=== PATIENT | male | born 1985 | race Caucasian/White ===

== ENCOUNTER 2022-03-18 12:00 | Observation (INO) | payer MEDICARE, MEDICAID ==
[2022-03-18] MEDS ORDERED: Lidocaine 1% (PF) 30 ML VIAL ONE (12:53)
[2022-03-18] MEDS ORDERED: Bacitracin Zinc Ointment 30 gm TUBE ONE (12:53)
[2022-03-18] MEDS ORDERED: EPINEPHrine 1 MG/ML AMP ONE (12:53)
[2022-03-18] MEDS ORDERED: Midazolam HCl 2 mg/2 ml Vial ONE (12:58)
[2022-03-18] MEDS ORDERED: Bupivacaine/Epinephrine 0.25% 30 ML VIAL ONE (12:59)
[2022-03-18] MEDS ORDERED: Famotidine/PF 20 mg/2ml Vial ONE (13:01)
[2022-03-18] MEDS ORDERED: Fentanyl 250 MCG/5 ML VIAL ONE (13:13)
[2022-03-18] MEDS ORDERED: FENTANYL 50 MCG/ML 1 ML VIAL ONE (13:20)
[2022-03-18] MEDS ORDERED: Albuterol HFA (OR) 200 PUFF INH ONE (13:23)
[2022-03-18] MEDS ORDERED: Ondansetron PF 4 MG/2 ML Vial ONE (13:23)
[2022-03-18] MEDS ORDERED: Lidocaine 1% PF 5 ML VIAL ONE (13:23)
[2022-03-18] MEDS ORDERED: Succinylcholine Chloride 100 MG/5 ML SYRINGE FS ONE (13:23)
[2022-03-18] MEDS ORDERED: Dexamethasone 20 MG/5 ML VIAL ONE (13:23)
[2022-03-18] MEDS ORDERED: Ketorolac Tromethamine 30 MG/ML VIAL ONE (13:23)
[2022-03-18] MEDS ORDERED: Metoclopramide HCl 10 MG/2 ML VIAL ONE (13:23)
[2022-03-18] MEDS ORDERED: PROPOFOL 200 MG/20 ML VIAL ONE (13:23)
[2022-03-18] MEDS ORDERED: Vancomycin 1 GM VIAL ONE (13:39)
[2022-03-18] MEDS ORDERED: Meperidine HCl/PF 25 MG/ML VIAL ONE (13:56)
[2022-03-18 14:52] LABS: SARS-CoV-2 NAA Rapid Test Not Detected (NotDetected)
[2022-03-18] MEDS ORDERED: Acetaminophen 325 MG TAB PO PRN (15:27)
[2022-03-18] MEDS ORDERED: Senokot S 8.6-50 MG TAB PO PRN (15:27)
[2022-03-18 15:56] LABS: Hemoglobin 15.8 g/dL (14.0-18.0); Mean Corpuscular HGB CONC 34.1 g/dL (32.0-36.0); Mean Corpuscular Volume 90.7 fl (78.0-98.0); Mean Platelet Volume 7.7 fL (7.4-10.4); Platelet Count 305 10x3/uL (130-400); Red Blood Cell (RBC) Count 5.12 mill/uL (4.70-6.10); White Blood Cell (WBC) Count 20.3 10x3/uL (4.8-10.8)
[2022-03-18 16:18] LABS: ALT (SGPT) 17 U/L (8-55); AST (SGOT) 15 U/L (5-34); Albumin 4.1 g/dL (3.5-5.0); Alkaline Phosphatase 63 U/L (40-110); Anion Gap 15 mmol/L (10-20); BUN (Urea Nitrogen) 13 mg/dL (8.9-20.6); Bilirubin, Total 0.9 mg/dL (0.2-1.2); Calc. Creatinine Clearance 0 mL/min (70-130); Calcium 9.2 mg/dL (7.8-10.44); Carbon Dioxide 24 mmol/L (22-29); Chloride 102 mmol/L (98-107); Estimated GFR 118; Globulin 3.5 g/dL (2.4-3.5); Glucose 105 mg/dL (70-105); Potassium 3.5 mmol/L (3.5-5.1); Protein, Total 7.6 g/dL (6.0-8.3); Sodium 137 mmol/L (136-145)
[2022-03-18 16:30] LABS: Band 4 % (5-11); Lymphocytes 5 % (21-51); MDiff Complete? YES; Monocytes 2 % (0-10); Neutrophil 89 % (42-75); Platelet Morphology Comment Appears Adequate; RBC Morphology Normal
[2022-03-18] MEDS: Mometasone 100 MCG/Formoterol 5 MCG 120 PUFF INHALER INH SCH (19:03)
[2022-03-18 20:53] VITALS: BMI 33.0
[2022-03-18] MEDS: Famotidine 20 MG TAB PO SCH (21:16)
[2022-03-18] MEDS: Clindamycin/D5W 600 MG in Premix Bag 1 BAG IVPB SCH (21:16)
[2022-03-19] MEDS: Vancomycin 1.5 GRAM/300 ML BAG 1.5 GM in Premix Bag 1 BAG IVPB SCH ×2 (00:45→09:57)
[2022-03-19] MEDS: Clindamycin/D5W 600 MG in Premix Bag 1 BAG IVPB SCH ×2 (05:27→13:50)
[2022-03-19 06:59] LABS: #Lymphocytes 1.1 thou/uL (1.20-3.40); #Monocytes 0.8 thou/uL (0.11-0.59); #Neutrophils 16.9 thou/uL (1.40-6.50); %Basophils 0.2 % (0.0-1.0); %Eosinophils 0.1 % (0.0-10.0); %Lymphocytes 5.6 % (21.0-51.0); %Monocytes 4.2 % (0.0-10.0); %Neutrophils 89.9 % (42.0-75.0); Hemoglobin 15.5 g/dL (14.0-18.0); Mean Corpuscular HGB CONC 34.1 g/dL (32.0-36.0); Mean Corpuscular Hemoglobin 31.3 pg (27.0-31.0); Mean Corpuscular Volume 91.9 fl (78.0-98.0); Mean Platelet Volume 7.9 fL (7.4-10.4); Platelet Count 331 10x3/uL (130-400); RBC Distribution Width 11.8 % (11.5-14.5); Red Blood Cell (RBC) Count 4.95 mill/uL (4.70-6.10); White Blood Cell (WBC) Count 18.8 10x3/uL (4.8-10.8)
[2022-03-19 07:10] LABS: Anion Gap 13 mmol/L (10-20); BUN (Urea Nitrogen) 15 mg/dL (8.9-20.6); Calc. Creatinine Clearance 187 mL/min (70-130); Calcium 9.3 mg/dL (7.8-10.44); Carbon Dioxide 25 mmol/L (22-29); Chloride 102 mmol/L (98-107); Estimated GFR 119; Glucose 148 mg/dL (70-105); Potassium 3.5 mmol/L (3.5-5.1); Sodium 136 mmol/L (136-145)
[2022-03-19] MEDS: Mometasone 100 MCG/Formoterol 5 MCG 120 PUFF INHALER INH SCH (07:37)
[2022-03-19] MEDS ORDERED: Aspirin 81 mg Enteric Coated Tablet PO SCH (09:00)
[2022-03-19] MEDS ORDERED: FLUoxetine HCl 20 MG CAP PO SCH (09:00)
[2022-03-19] MEDS: Famotidine 20 MG TAB PO SCH (09:58)
[2022-03-19 13:00] VITALS: BP 129/85; TEMP 97.6
[2022-03-19] MEDS ORDERED: Clindamycin/D5W 600 mg/50 ml Premix Bag ONE (13:49)
== END 2022-03-19 15:30 | disposition home or self-care (01) ==
LOC: SDC 12:00 → SJJU 15:31
PROVIDERS: ADMIT Internal Medicine; ATTEND Internal Medicine
PROC: 0C90XZZ Drainage of Upper Lip, External Approach (ICD-10-PCS; principal; 2022-03-18)
DX: K13.0 Diseases of lips (principal); J45.909 Unspecified asthma, uncomplicated; Z86.14 Personal history of Methicillin resistant Staphylococcus aureus infection; Z79.82 Long term (current) use of aspirin; Z79.899 Other long term (current) drug therapy; Z88.0 Allergy status to penicillin; Z88.1 Allergy status to other antibiotic agents; Z88.2 Allergy status to sulfonamides
CPT/HCPCS: 36415; 80048; 80053; 85025; 87070; 87077; 87186; 87205; 94664; 96374; 96375; 96376; G0378; J0171; J1100; J1885; J2001; J2175; J2250; J2405; J2704; J2765; J3010; J3370; J3490; S0028; U0002

== ENCOUNTER 2022-09-30 17:40 | Inpatient (IN) | payer MEDICARE, MEDICAID ==
[2022-09-30 18:34] LABS: #Monocytes 1.3 thou/uL (0.11-0.59); #Neutrophils 9.8 thou/uL (1.40-6.50); %Basophils 0.2 % (0.0-1.0); %Eosinophils 0.2 % (0.0-10.0); %Lymphocytes 28.9 % (21.0-51.0); %Monocytes 8.4 % (0.0-10.0); %Neutrophils 61.7 % (42.0-75.0); Hemoglobin 17.4 g/dL (14.0-18.0); Mean Corpuscular HGB CONC 34.7 g/dL (32.0-36.0); Mean Corpuscular Hemoglobin 29.9 pg (27.0-31.0); Mean Corpuscular Volume 86.4 fl (78.0-98.0); Mean Platelet Volume 9.8 fL (7.4-10.4); Platelet Count 343 10x3/uL (130-400); RBC Distribution Width 12.6 % (11.5-14.5); Red Blood Cell (RBC) Count 5.81 mill/uL (4.70-6.10); White Blood Cell (WBC) Count 15.9 10x3/uL (4.8-10.8)
[2022-09-30] MEDS ORDERED: Vancomycin 1 GM/200 ML (FROZEN) BAG ONE (18:55)
[2022-09-30 18:58] LABS: ALT (SGPT) 19 U/L (8-55); AST (SGOT) 15 U/L (5-34); Albumin 4.1 g/dL (3.5-5.0); Alkaline Phosphatase 74 U/L (40-110); Anion Gap 15 mmol/L (10-20); BUN (Urea Nitrogen) 16 mg/dL (8.9-20.6); Bilirubin, Total 0.7 mg/dL (0.2-1.2); Calc. Creatinine Clearance 0 mL/min (70-130); Carbon Dioxide 24 mmol/L (22-29); Chloride 104 mmol/L (98-107); Estimated GFR 102; Globulin 3.1 g/dL (2.4-3.5); Glucose 88 mg/dL (70-105); Potassium 3.2 mmol/L (3.5-5.1); Protein, Total 7.2 g/dL (6.0-8.3); Sodium 140 mmol/L (136-145)
[2022-09-30] MEDS ORDERED: Clindamycin/D5W 300 MG in Premix Bag 1 BAG IVPB SCH (19:15)
[2022-09-30] MEDS ORDERED: Electrolyte Replacement Protocol 1 EACH FS SCH (20:31)
[2022-09-30] MEDS ORDERED: Ondansetron ODT 4 MG TAB PO PRN (20:31)
[2022-09-30] MEDS ORDERED: Senokot S 8.6-50 MG TAB PO PRN (20:31)
[2022-09-30] MEDS ORDERED: Potassium Chloride 20 MEQ TAB PO SCH (20:45)
[2022-09-30] MEDS ORDERED: Dexamethasone 10 MG/ML VIAL SLOW IVP SCH (20:45)
[2022-09-30 21:08] LABS: Hemoglobin A1c 5.1 % (4.0-6.0)
[2022-09-30] MEDS: Doxycycline 100 MG in Sodium Chloride 0.9% 100 ML IVPB SCH (21:57)
[2022-09-30] MEDS: Famotidine 20 MG TAB PO SCH (22:21)
[2022-09-30 23:07] VITALS: BMI 33.5
[2022-09-30] MEDS ORDERED: Vancomycin 1 GM in Premix Bag 1 BAG IVPB SCH (23:30)
[2022-10-01] MEDS: Doxycycline 100 MG in Sodium Chloride 0.9% 100 ML IVPB SCH ×3 (00:56→21:34)
[2022-10-01] MEDS ORDERED: Albuterol 200 PUFF (6.7GM INHALER) INH PRN (02:32)
[2022-10-01 07:14] LABS: #Monocytes 0.2 thou/uL (0.11-0.59); #Neutrophils 11.3 thou/uL (1.40-6.50); %Basophils 0.1 % (0.0-1.0); %Lymphocytes 7.7 % (21.0-51.0); %Monocytes 1.8 % (0.0-10.0); %Neutrophils 89.8 % (42.0-75.0); Hemoglobin 17.4 g/dL (14.0-18.0); Mean Corpuscular HGB CONC 33.5 g/dL (32.0-36.0); Mean Corpuscular Hemoglobin 29.5 pg (27.0-31.0); Mean Corpuscular Volume 88.3 fl (78.0-98.0); Platelet Count 371 10x3/uL (130-400); RBC Distribution Width 12.4 % (11.5-14.5); Red Blood Cell (RBC) Count 5.89 mill/uL (4.70-6.10); White Blood Cell (WBC) Count 12.5 10x3/uL (4.8-10.8)
[2022-10-01 07:38] LABS: Anion Gap 12 mmol/L (10-20); BUN (Urea Nitrogen) 11 mg/dL (8.9-20.6); Calc. Creatinine Clearance 143 mL/min (70-130); Calcium 9.3 mg/dL (7.8-10.44); Carbon Dioxide 28 mmol/L (22-29); Chloride 101 mmol/L (98-107); Estimated GFR 99; Glucose 130 mg/dL (70-105); Potassium 4.1 mmol/L (3.5-5.1); Sodium 137 mmol/L (136-145)
[2022-10-01] MEDS: Famotidine 20 MG TAB PO SCH ×2 (08:39→21:35)
[2022-10-01] MEDS: Acetaminophen 325 MG TAB PO PRN ×2 (08:40→18:22)
[2022-10-01] MEDS ORDERED: Albuterol 2.5 MG/0.5 ML NEB NEB PRN (08:56)
[2022-10-01] MEDS: VANCOMYCIN 1.25 GM/250 ML BAG 1.25 GM in Premix Bag 1 BAG IVPB SCH ×2 (09:50→18:09)
[2022-10-01] MEDS: FLUoxetine HCl 20 MG CAP PO SCH (09:51)
[2022-10-01] MEDS: Aspirin 81 mg Enteric Coated Tablet PO SCH (09:51)
[2022-10-01] MEDS: Loratadine 10 MG TAB PO SCH (09:51)
[2022-10-01] MEDS: Mometasone 100 MCG/Formoterol 5 MCG 120 PUFF INHALER INH SCH (17:15)
[2022-10-01] MEDS: diphenhydrAMINE 25 MG CAP PO PRN (18:23)
[2022-10-01 23:27] LABS: Vancomycin, Trough 22.7 ug/mL
[2022-10-02] MEDS: Vancomycin 1 GM in Premix Bag 1 BAG IVPB SCH ×2 (01:48→10:09)
[2022-10-02] MEDS: Mometasone 100 MCG/Formoterol 5 MCG 120 PUFF INHALER INH SCH (06:51)
[2022-10-02 07:24] VITALS: BP 125/87; TEMP 97.9
[2022-10-02] MEDS: Doxycycline 100 MG in Sodium Chloride 0.9% 100 ML IVPB SCH (08:09)
[2022-10-02] MEDS: FLUoxetine HCl 20 MG CAP PO SCH (08:10)
[2022-10-02] MEDS: Acetaminophen 325 MG TAB PO PRN (08:10)
[2022-10-02] MEDS: Loratadine 10 MG TAB PO SCH (08:11)
[2022-10-02] MEDS: Famotidine 20 MG TAB PO SCH (08:11)
[2022-10-02] MEDS: Aspirin 81 mg Enteric Coated Tablet PO SCH (08:11)
[2022-10-02] MEDS: diphenhydrAMINE 25 MG CAP PO PRN (08:11)
== END 2022-10-02 10:21 | disposition home or self-care (01) | DRG 603 ==
LOC: ERS 17:40 → T4-B 19:57 → OBSVTOIN 10-01 13:05
PROVIDERS: ADMIT Student in an Organized Health Care Education/Training Program; ATTEND Internal Medicine
DX: L03.213 Periorbital cellulitis (principal); K21.9 Gastro-esophageal reflux disease without esophagitis; E87.6 Hypokalemia; J45.909 Unspecified asthma, uncomplicated; E11.9 Type 2 diabetes mellitus without complications; Z82.49 Family history of ischemic heart disease and other diseases of the circulatory system; Z98.890 Other specified postprocedural states; Z88.0 Allergy status to penicillin; Z88.1 Allergy status to other antibiotic agents; Z88.8 Allergy status to other drugs, medicaments and biological substances; Z79.82 Long term (current) use of aspirin; Z79.899 Other long term (current) drug therapy
CPT/HCPCS: 36415; 70487; 80048; 80053; 80202; 83036; 83605; 85025; 87040; 96365; 96367; 96375; 96376; 97139; G0378; J1100; J3370; J3370-JW; J3490

== ENCOUNTER 2023-05-03 07:47 | Outpatient (CLI) | payer MEDICARE, OTHER | END 2023-05-03 07:48 | disposition home or self-care (01) | LOC: SCSMRI 07:47 | PROVIDERS: ATTEND Internal Medicine Gastroenterology | DX: K21.9 Gastro-esophageal reflux disease without esophagitis (principal); J44.9 Chronic obstructive pulmonary disease, unspecified; K92.1 Melena; R16.0 Hepatomegaly, not elsewhere classified; N28.1 Cyst of kidney, acquired; K76.0 Fatty (change of) liver, not elsewhere classified; K82.8 Other specified diseases of gallbladder; Z80.0 Family history of malignant neoplasm of digestive organs | CPT/HCPCS: 74183 ==